=== PATIENT | male | born 1970 | race Caucasian/White ===

== ENCOUNTER 2022-12-09 11:53 | Emergency (ER) | payer BC, OTHER ==
[~2022-12-09] VITALS: Ht 182.9 cm; Wt 83.9 kg
--- NOTE | 2022-12-09 12:00 | NUR ---
TO ER BED 1. BIBS C/O RIGHT CALF PAIN SINCE YESTERDAY. PT DENIES ANY TRAUMA TO AREA. STATES THAT HE HAS NOT BEEN TRAVELING RECENTLY. AWAITING MD ORDERS.
--- NOTE | 2022-12-09 12:21 | NUR ---
ULTRASOUND AT BEDSIDE
[2022-12-09 12:35] VITALS: BP 114/72
--- NOTE | 2022-12-09 12:35 | NUR ---
Patient discharged to home in stable condition. Written and verbal after care instructions given. Patient verbalizes understanding of instruction.
== END 2022-12-09 12:35 | disposition home or self-care (01) ==
LOC: ER 11:58
DX: S93.491A Sprain of other ligament of right ankle, initial encounter (principal); F17.200 Nicotine dependence, unspecified, uncomplicated; Z60.2 Problems related to living alone; X58.XXXA Exposure to other specified factors, initial encounter; Y93.89 Activity, other specified; Y92.89 Other specified places as the place of occurrence of the external cause; Y99.8 Other external cause status
CPT/HCPCS: 93970-TC

== ENCOUNTER 2022-12-31 13:11 | Emergency (ER) | payer BC ==
[~2022-12-31] VITALS: Ht 182.9 cm; Wt 80.3 kg
--- NOTE | 2022-12-31 14:00 | NUR ---
iv established. 20G L Hand
--- NOTE | 2022-12-31 14:00 | NUR ---
blood drawn and sent to lab
[2022-12-31 14:11] LABS: BASOPHILS # (AUTO) 0.1 K/uL (0.0-0.2); BASOPHILS % (AUTO) 1.4 % (0.0-2.0); EOSINOPHILS % (AUTO) 4.9 % (0.0-6.0); HEMATOCRIT 40 % (39-51); HEMOGLOBIN 13.5 g/dL (13.5-17.5); LYMPHOCYTES # (AUTO) 1.3 K/uL (0.8-4.8); LYMPHOCYTES % (AUTO) 18.4 % (20.0-44.0); MEAN CORPUSCULAR HGB CONC 34 g/dl (31.0-36.0); MEAN CORPUSCULAR VOLUME 91 fL (80-96); MONOCYTES % (AUTO) 14.8 % (2.0-12.0); NEUTROPHILS # (AUTO) 4.1 K/uL (1.8-8.9); NEUTROPHILS % (AUTO) 60.5 % (43.0-81.0); PLATELET COUNT (AUTO) 382 K/uL (150-450); RED BLOOD CELL COUNT(AUTO) 4.41 MIL/uL (4.5-6.0); WHITE BLOOD COUNT (AUTO) 6.8 K/uL (4.3-11.0)
[2022-12-31 14:35] LABS: CALCIUM, SERUM 9.2 mg/dL (8.5-10.1); CARBON DIOXIDE 28 mmol/L (21-32); CHLORIDE 105 mmol/L (98-107); CREATININE 0.9 mg/dL (0.6-1.3); GLUCOSE 140 mg/dL (74-106); POTASSIUM 4.1 mmol/L (3.5-5.1); SODIUM SERUM 140 mmol/L (136-145); UREA NITROGEN, BLOOD 13 mg/dL (7-18)
[2022-12-31 14:42] LABS: ALANINE AMINOTRANSFERASE 28 U/L (12-78); ALBUMIN 3.4 g/dL (3.4-5.0); ALKALINE PHOSPHATASE 82 U/L (46-116); ASPARTATE AMINOTRANSFERASE 18 U/L (15-37); BILIRUBIN,DIRECT 0.1 mg/dL (0.0-0.2); BILIRUBIN,TOTAL 0.4 mg/dL (0.2-1.0); TOTAL PROTEIN, SERUM 7.1 g/dL (6.4-8.2)
[2022-12-31 16:02] VITALS: BP 122/78
--- NOTE | 2022-12-31 16:02 | NUR ---
Patient discharged to home in stable condition, ambulating. Written and verbal after care instructions given. Patient verbalizes understanding of instruction.
== END 2022-12-31 16:02 | disposition home or self-care (01) ==
LOC: ER 13:13
DX: M79.89 Other specified soft tissue disorders (principal); F17.200 Nicotine dependence, unspecified, uncomplicated; R06.02 Shortness of breath; Z60.2 Problems related to living alone
CPT/HCPCS: 36415; 71045-TC; 80048-TC; 80076-TC; 83880; 84484-TC; 85025-TC